=== PATIENT | male | born 1970 | race American Indian/Alaskan Native ===

== ENCOUNTER 2018-11-29 23:13 | Emergency (ER) | payer OTHER ==
[2018-11-29 23:28] VITALS: BP 153/92
[2018-11-30] MEDS ORDERED: ALBUTEROL 2.5 MG/3 ML NEBU IH ONE (00:40)
[2018-11-30] MEDS ORDERED: predniSONE 20 MG TAB PO ONE (00:40)
--- NOTE | 2018-11-30 00:43 | Emergency Department Report ---
ED Asthma HPI - General Chief Complaint: Dyspnea/Respdistress Stated Complaint: ASTHMA ATTACK Time Seen by Provider: 11/30/18 00:26 Source: patient Mode of arrival: Ambulatory Limitations: No Limitations - History of Present Illness Initial Comments: 48-year-old -[place] male presents to the emergency room stating that he had asthma attack earlier today. Patient denies any fever admits to chills denies any nausea vomiting. Patient states he is ran out of his medicine for the last 6 months and was last seen by primary care provider over a year. Patient denies any other past medical history. MD Complaint: "asthma attack" -: This afternoon Severity: similar to prior Context: none known - Related Data Current Asthma Therapy: none Previous Rx's Medication Instructions Recorded Last Taken Type ALBUTEROL Inhaler (OR & NICU) 2 puff IH QID PRN #1 inhalation 11/30/18 Unknown Rx [ProAir HFA Inhaler] Prednisone [predniSONE 10 mg 10 mg PO .TAPER #1 tab.ds.pk 11/30/18 Unknown Rx (6-Day Pack, 21 Tabs)] Allergies Allergy/AdvReac Type Severity Reaction Status Date / Time No Known Allergies Allergy Unverified 11/29/18 23:29 ED Review of Systems ROS: Stated complaint: ASTHMA ATTACK Other details as noted in HPI ED Past Medical Hx - Past Medical History Hx Asthma: Yes - Social History Smoking Status: Never Smoker - Medications Home Medications: Home Medications Medication Instructions Recorded Confirmed Last Taken Type ALBUTEROL Inhaler (OR & NICU) 2 puff IH QID PRN #1 inhalation 11/30/18 Unknown Rx [ProAir HFA Inhaler] Prednisone [predniSONE 10 mg 10 mg PO .TAPER #1 tab.ds.pk 11/30/18 Unknown Rx (6-Day Pack, 21 Tabs)] ED Physical Exam - General Limitations: No Limitations General appearance: alert, in no apparent distress - Head Head exam: Present: atraumatic, normocephalic - Eye Eye exam: Present: normal appearance - ENT ENT exam: Present: mucous membranes moist - Respiratory Respiratory exam: Present: wheezes (upper lobes) - Cardiovascular Cardiovascular Exam: Present: regular rate, normal rhythm. Absent: systolic murmur, diastolic murmur, rubs, gallop - GI/Abdominal GI/Abdominal exam: Present: soft, normal bowel sounds - Rectal Rectal exam: Present: deferred - Neurological Exam Neurological exam: Present: alert, oriented X3 - Psychiatric Psychiatric exam: Present: normal affect, normal mood - Skin Skin exam: Present: warm, dry, intact, normal color. Absent: rash ED Course Vital Signs 11/29/18 23:26 Temperature 98.2 F Pulse Rate 81 Respiratory 20 Rate Blood Pressure 153/92 O2 Sat by Pulse 97 Oximetry ED Medical Decision Making - Medical Decision Making 48-year-old -[place] male presents to the emergency room stating that he had asthma attack earlier today. Patient denies any fever admits to chills denies any nausea vomiting. Patient states he is ran out of his medicine for the last 6 months and was last seen by primary care provider over a year. Patient denies any other past medical history. Prednisone 60 mg by mouth and albuterol 5 mg inhalation neb Critical care attestation.: If time is entered above; I have spent that time in minutes in the direct care of this critically ill patient, excluding procedure time. ED Disposition Clinical Impression: Asthma Disposition: [id number] TO HOME OR SELFCARE Is pt being admited?: No Does the pt Need Aspirin: No Condition: Stable Instructions: Asthma (ED) Prescriptions: Prednisone [predniSONE 10 mg (6-Day Pack, 21 Tabs)] 10 mg PO .TAPER #1 tab.ds.pk ALBUTEROL Inhaler (OR & NICU) [ProAir HFA Inhaler] 2 puff IH QID PRN #1 inhalation PRN Reason: Shortness Of Breath Referrals: [facility] FILI RAJNA MD [Primary Care Provider] - 3-5 Days Forms: Work/School Release Form(ED)
== END 2018-11-30 02:22 | disposition home or self-care (01) ==
LOC: ED 23:13
DX: J45.909 Unspecified asthma, uncomplicated (principal); Z79.899 Other long term (current) drug therapy
CPT/HCPCS: 94640; 99282; J7512